=== PATIENT | female | born 1975 | race African-American/Black ===

== ENCOUNTER 2024-03-14 12:57 | Outpatient (AMB) | payer OTHER, SELFPAY ==
--- NOTE | 2024-03-14 13:11 | A.OFFVIS_ITS ---
Vital Signs 03/14/24 13:13 Height 5 ft 4 in Weight 171 lb 15.369 oz BMI 29.5 BP 123/73 Blood Pressure Location Lt brachial Position Sitting Pulse 63 Intake Visit Reasons: [place] Screening Intake Note: Yarely presents in the office as a colonoscopy screening. CC: She states that she would like to have a second opinion from her previous colonoscopy. Last one was at [facility] and she has records with her. Allergies Penicillins Allergy (Mild, Verified 03/14/24 13:14) Unknown HPI HPI [place] Screening: Details: 49 year old? female with past medical history of hypertension, migraines, obesity, hypothyroidism is here today for 2nd opinion.? Patient was sent to us by her PCP. Patient reports that she had colonoscopy on October 28 this year and never received the phone call. Patient states that she received the letter that she has precancerous polyps. Patient is very upset and does not want to wait 5 years for colonoscopy screening. Patient had 1 polyps breath paperwork with her all paperwork reviewed. Diverticulosis also seen in her colon. Patient has questions about that as well. Long discussion with patient about what tubular adenoma means. Patient is asymptomatic at this time. Patient denies having any melena, hematochezia, unintentional weight loss or ribbon like stools. Patient denies any other GI concerning symptoms. [facility] Surgical History (Updated 03/14/24 @ 13:14 by SHANE Higgins) Hx of colonoscopy Review of Systems Const Denies weight gain and Denies weight loss ENT Reports no additional complaints, Denies dysphagia and Denies odynophagia Card Reports no additional complaints Resp Reports no additional complaints GI Denies abdominal pain, Denies belching, Denies melena, Denies bloating, Denies change in bowel habits, Denies dysphagia, Denies excessive flatus, Denies dyspepsia, Denies heartburn, Denies diarrhea, Denies loose stools, Denies nausea, Denies odynophagia and Denies vomiting Musc Reports no additional complaints Neuro Reports no additional complaints Psych Reports no additional complaints Endo Reports no additional complaints Physical Exam Vital Signs: Last Vital Signs Pulse 63 03/14/24 13:13 BP 123/73 03/14/24 13:13 BMI result Body Mass Index 29.5 Const General: healthy appearing, no acute distress and well developed Nutritional Appearance: well nourished Orientation/consciousness: patient oriented x3 Resp Effort & Inspection: normal respiratory effort, able to speak in complete sentences, no tracheal deviation and symmetric chest movement Auscultation: clear to auscultation bilaterally Cardio Rate: regular rate GI Inspection: Yes normal to inspection and No distended Palpation (GI): Soft to palpation, not firm, nontender and No hepatosplenomegaly present Auscultation: normal bowel sounds General: Yes no CVA tenderness Back/Spine/Pelvis Back: no CVA tenderness Skin General skin exam: elasticity normal, turgor normal and dry skin Neuro General: patient oriented x3 Psych Appearance: grossly normal Mental Status: mental status grossly normal Assessment & Plan Assessment & Plan (1) Screen for colon cancer: Code(s): Z12.11 - Encounter for screening for malignant neoplasm of colon Plan Patient denies any GI, cardiac or respiratory symptoms.? Colonoscopy was done at [facility] on October 28 of this year. One tubular adenoma found and recommendation was made to return in 5 years. Long discussion with patient about what these results actually mean. There was no dysplasia or carcinoma. Small less than 1 cm polyp found. Agree with colonoscopy in 5 years, however patient was encouraged to return to our office sooner if she will have any rectal bleed, melena, hematochezia, unintentional weight loss or ribbon like stools. Discussed with patient high-fiber diet, diverticulosis also seen on colonoscopy. Recommended high-fiber food and probiotics. List of food high in fiber given to patient. She will return to our office on as needed basis. She is agreeable to current plan of care and verbalizes understanding of instructions. She was given the opportunity to ask questions and all questions answered. Thank you for allowing me to participate in her care Medications: New methylcellulose (laxative) (Citrucel) take it with full glass of water 500 mg PO DAILY 90 tabs 2RF K59.00 - Constipation, unspecified Coding Level of Care Code New Pt Level 3 (95476) Diagnoses Screen for colon cancer Z12.11 Time Spent (min) 40 Comment 30 minutes spent with patient and additional 10 minutes spent reviewing her records
[2024-03-14 13:13] VITALS: BP 123/73; PULSE 63; BMI 29.5
== END 2024-03-14 13:39 | disposition home or self-care (01) ==
PROVIDERS: PCP Nurse Practitioner Family; Visit Provider Nurse Practitioner Family
DX: K57.90 Diverticulosis of intestine, part unspecified, without perforation or abscess without bleeding (principal); Z86.010 Personal history of colon polyps
CPT/HCPCS: 99203

== ENCOUNTER → 2024-03-14 12:57 | Outpatient (BNVA) | payer OTHER, SELFPAY | PROVIDERS: PCP Nurse Practitioner Family; Visit Provider Nurse Practitioner Family ==